=== PATIENT | male | born 1950 | race Caucasian/White ===

== ENCOUNTER 2017-07-23 15:08 | Emergency (ER) | payer BC, OTHER ==
--- NOTE | 2017-07-23 16:01 | EDM.PDOC ---
ED HPI GENERAL MEDICAL PROBLEM - General Chief Complaint: Neuro Symptoms/Deficits Stated Complaint: TINGLING/SENSATIONS IN FACE Time Seen by Provider: 07/23/17 16:00 Source of Information: Reports: Patient, Family History Limitations: Reports: No Limitations - History of Present Illness INITIAL COMMENTS - FREE TEXT/NARRATIVE: pt has had about 4 hours of marked facial numbness and twitching of the muscles when he smiles. This occurs on both sides. He has no facial deviation.he has no other symptoms. Onset: Today, Sudden, Other ( lasted for 4 hours. It is now improving. ) Duration: Hour(s): Location: Reports: Face Associated Symptoms: Reports: Other (pt had muscle twitching on the face. ) - Related Data Allergies Allergy/AdvReac Type Severity Reaction Status Date / Time codeine Allergy Nausea and Verified 07/23/17 15:22 Vomiting Penicillins Allergy Hives Verified 07/23/17 15:22 Home Meds: Home Meds Hydrochlorothiazide [Hydrochlorothiazide] 25 mg PO DAILY 07/23/17 [History] Lisinopril [Lisinopril] 20 mg PO DAILY 07/23/17 [History] Zolpidem Tartrate [Zolpidem Tartrate] 10 mg PO DAILY 07/23/17 [History] amLODIPine Besylate [Amlodipine Besylate] 5 mg PO DAILY 07/23/17 [History] atorvaSTATin [Lipitor] 80 mg PO ONETIME 07/23/17 [History] Past Medical History Cardiovascular History: Reports: Heart Murmur, High Cholesterol, Hypertension Gastrointestinal History: Reports: GERD Neurological History: Reports: Cerebral Aneurysms, CVA - Past Surgical History Cardiovascular Surgical History: Reports: Carotid Endarterectomy GI Surgical History: Reports: Joseph Fundoplication Other Endocrine Surgeries/Procedures: nodual removed from thyroid Social & Family History - Tobacco Use Smoking Status *Q: Former Smoker Used Tobacco, but Quit: Yes Month Tobacco Last Used: 35 years ago - Caffeine Use Caffeine Use: Reports: Coffee - Recreational Drug Use Recreational Drug Use: No ED ROS GENERAL - Review of Systems Review Of Systems: See Below Constitutional: Reports: No Symptoms HEENT: Reports: Other ( muscle twitching on the cheek area bilaterally. ) Respiratory: Reports: No Symptoms Cardiovascular: Reports: No Symptoms Endocrine: Reports: No Symptoms GI/Abdominal: Reports: No Symptoms : Reports: No Symptoms Musculoskeletal: Reports: No Symptoms Skin: Reports: No Symptoms Neurological: Reports: Tingling, Other ( pt has tingling on the face bilateral. ) ED EXAM, NEURO - Physical Exam Exam: See Below Text/Narrative:: pt arrived with facial tingling bilateral. He has muscle twitching of the facial muscles when he smiles. Exam Limited By: No Limitations General Appearance: Alert, Anxious, Other (pupils equal and are reactive, no nystagmus is noted. ) Ears: Normal TMs Nose: Normal Inspection Throat/Mouth: Normal Inspection Head Exam: Atraumatic Neck: Normal Inspection Respiratory/Chest: No Respiratory Distress Cardiovascular: Other ( grade 3 systolic murmur which is long standing. ) GI/Abdominal: Soft (Male) Exam: Deferred Rectal (Males) Exam: Deferred Neurological: Alert, Normal Gait, Normal Reflexes, Other (He has facial twitching. The twitching occured in the cheeks ) Back Exam: Normal Inspection Extremities: Normal Inspection Psychiatric: Normal Affect Course - Vital Signs Last Recorded V/S: Last Vital Signs Temp 36.4 C 07/23/17 18:36 Pulse 56 L 07/23/17 18:36 Resp 16 07/23/17 18:36 BP 187/121 H 07/23/17 18:36 Pulse Ox 94 L 07/23/17 18:36 - Orders/Labs/Meds Orders: Active Orders 24 hr Category Date Time Status EKG Documentation Completion [RC] ASDIRECTED Care 07/23/17 16:01 Active Carotid Comp [US] Stat Exams 07/23/17 16:00 Taken Head wo Cont [CT] Stat Exams 07/23/17 15:58 Taken EKG 12 Lead [EK] Routine Ther 07/23/17 16:01 Ordered Labs: Laboratory Tests 07/23/17 07/23/17 Range/Units 16:09 16:09 WBC 5.5 (4.5-11.0) K/uL RBC 4.77 (4.30-5.90) M/uL Hgb 14.4 (12.0-15.0) g/dL Hct 41.2 (40.0-54.0) % MCV 86 (80-98) fL MCH 30 (27-31) pg MCHC 35 (32-36) % Plt Count 217 (150-400) K/uL Neut % (Auto) 67 H (36-66) % Lymph % (Auto) 24 (24-44) % Falls % (Auto) 8 H (2-6) % Eos % (Auto) 0 L (2-4) % Baso % (Auto) 1 (0-1) % Sodium 140 (140-148) mmol/L Potassium 3.7 (3.6-5.2) mmol/L Chloride 104 (100-108) mmol/L Carbon Dioxide 28 (21-32) mmol/L Anion Gap 8.2 (5.0-14.0) mmol/L BUN 13 (7-18) mg/dL Creatinine 1.0 (0.8-1.3) mg/dL Est Cr Clr Drug Dosing 76.21 mL/min Estimated GFR (MDRD) > 60 (>60) Glucose 97 (74-106) mg/dL Calcium 8.4 L (8.5-10.1) mg/dL Total Bilirubin 0.5 (0.2-1.0) mg/dL AST 25 (15-37) U/L ALT 30 (12-78) U/L Alkaline Phosphatase 61 (46-116) U/L Total Protein 7.3 (6.4-8.2) g/dL Albumin 3.8 (3.4-5.0) g/dL Globulin 3.5 (2.3-3.5) g/dL Albumin/Globulin Ratio 1.1 L (1.2-2.2) Meds: Medications Discontinued Medications Generic Name Dose Route Start Last Admin Trade Name Freq PRN Reason Stop Dose Admin Aspirin 325 mg 07/23/17 17:49 07/23/17 18:01 Ecotrin PO 07/23/17 17:50 325 mg ONETIME ONE Administration - Re-Assessments/Exams Free Text/Narrative Re-Assessment/Exam: 07/23/17 18:31 cat scan of the head was neg for acute findings, carotid us was neg. . for acute stenosis. His lab work was neg. He remained stable except his bp was elevated. He did take the usual meds that he would take in the pm. 07/23/17 18:32 07/24/17 07:28 Departure - Departure Time of Disposition: 18:33 Disposition: DC/Tfer to Acute Hospital 02 Condition: Fair Clinical Impression: Numbness of face - Discharge Information Referrals: PCP,None [Primary Care Provider] - Forms: ED Department Discharge Care Plan Goals: transfer to [facility] for further work up. He will have a MRI and if all is neg he may be able to go home. - My Orders Last 24 Hours: My Active Orders 07/23/17 15:58 Head wo Cont [CT] Stat 07/23/17 16:00 Carotid Comp [US] Stat 07/23/17 16:01 EKG Documentation Completion [RC] ASDIRECTED EKG 12 Lead [EK] Routine - Assessment/Plan Last 24 Hours: My Active Orders 07/23/17 15:58 Head wo Cont [CT] Stat 07/23/17 16:00 Carotid Comp [US] Stat 07/23/17 16:01 EKG Documentation Completion [RC] ASDIRECTED EKG 12 Lead [EK] Routine
[2017-07-23] MEDS ORDERED: Aspirin 325 MG Tab.EC PO ONE (17:49)
[2017-07-23 18:37] VITALS: BP 187/121
--- NOTE | 2017-07-24 09:59 | US ---
Carotid ultrasound. Findings: Left, common carotid artery is patent. There is mild-moderate plaque left bulb and left ICA. Peak sy stolic velocity left ICA 55 cm/s. Left vertebral artery is antegrade and patent. Right common carotid artery is patent. Mild plaque right ICA. Peak systolic velocity right ICA 56 cm per second. Right ve rtebral artery is antegrade and patent. There is some dampening of the waveform within the right subc lavian artery. No definitive elevated velocity. Impression: 1. No hemodynamically significant stenosis within the internal carotid arteries.
== END 2017-07-23 19:01 ==
LOC: JP.ED 15:08
DX: R20.0 Anesthesia of skin (principal); I10 Essential (primary) hypertension; E78.00 Pure hypercholesterolemia, unspecified; K21.9 Gastro-esophageal reflux disease without esophagitis; Z98.890 Other specified postprocedural states; Z87.891 Personal history of nicotine dependence; Z79.899 Other long term (current) drug therapy; Z88.0 Allergy status to penicillin; Z88.5 Allergy status to narcotic agent
CPT/HCPCS: 36415; 70450; 80053; 85025; 93005; 93880; 99285; A9270

== ENCOUNTER → 2017-11-12 | Day surgery (SDC) | payer OTHER, MEDICARE ==
[~2017-11-12] MED LIST: Bacitracin Oint 1 GM U/D Packet ONE; Bupivacaine 0.5% 30 ML SDV ONE; Bupivacaine 0.5% 50 ML MDV ONE; Lidocaine 1% 50 ML MDV ONE; Lidocaine 1% with EPINEPHrine 1:100,000 50 ML MDV ONE; Midazolam 1 MG/ML 2 ML SDV ONE; Propofol 200 MG/20 ML SDV ONE; Sodium Chloride 0.9% 1,000 ML IV SCH; ceFAZolin 2 GM in Premix Bag 1 BAG IV ONE; fentaNYL 100 MCG/2 ML SDV ONE
--- NOTE | 2017-12-06 09:24 | OR ---
DATE OF PROCEDURE: 11/12/2017 PROCEDURE: Excision of foreign body, left leg and left ring finger. COMPLICATIONS: None. MELT SUPERINTENDANT: None. ANESTHESIA: MAC/local. PREOPERATIVE DIAGNOSIS: Foreign bodies. POSTOPERATIVE DIAGNOSIS: Foreign bodies. INDICATIONS: This is a 67-year-old male with multiple foreign bodies as described above, requiring excision. Risks, benefits, alternatives, limitations including, but not limited to infection, bleeding, injury to blood vessels, nerves, and other risks, along with chronic wound formation, were explained to the patient, who wished to proceed. PROCEDURE IN DETAIL: The patient was placed in supine position. Attention was turned to the left leg first. This was anesthetized with 1% lidocaine. A single lorna was created in this, and this was excised with minimal dissection. This was noted to be a large piece of metal, consistent with a nail. The incision was closed with 3-0 Vicryl and 3-0 Prolene in interrupted and running fashion. Foam dressings were applied, along with Juan Pablo and Kerlix. Attention was then turned to the left ring finger. This was on the medial aspect. A single lorna was created in the skin approximately 5 mm in size. This would be enlarged multiple times. Over the next approximately 20 minutes, gentle dissection was done to be able to be correctly verified. Of note, careful attention was made to stay away from ligaments, tendons, nerves, and vessels. Because this was felt by the patient preoperatively to be superficial, an elliptical incision was made, and the skin was then excised. This was then closed with 3-0 Vicryl and 3-0 Prolene in an interrupted and running fashion. Dressings were applied. The patient tolerated the procedure well. Luis Caballero MD /[id number]
== END ==
LOC: JP.SDS 06:38
PROVIDERS: ATTEND Surgery
DX: S60.455A Superficial foreign body of left ring finger, initial encounter (principal); I10 Essential (primary) hypertension; G45.9 Transient cerebral ischemic attack, unspecified; W45.8XXA Other foreign body or object entering through skin, initial encounter; Z88.0 Allergy status to penicillin; Z88.8 Allergy status to other drugs, medicaments and biological substances
CPT/HCPCS: 10120; 12031; 36415; 80048; 85027; J2250; J2704; J3010

== ENCOUNTER 2019-04-02 19:49 | Emergency (ER) | payer MEDICARE, OTHER ==
[2019-04-02] MEDS ORDERED: Aspirin 81 MG Tab.Chew PO ONE (19:59)
[2019-04-02] MEDS ORDERED: Nitroglycerin/D5W 25 MG/250 ML BOTTLE IV SCH (20:00)
[2019-04-02] MEDS ORDERED: Sodium Chloride 0.9% 1,000 ML IV SCH (20:15)
[2019-04-02] MEDS ORDERED: Clopidogrel 75 MG Tab PO ONE (20:18)
[2019-04-02] MEDS ORDERED: Clopidogrel 75 MG Tab ONE (20:21)
[2019-04-02 20:30] VITALS: BP 153/102
--- NOTE | 2019-04-02 20:30 | EDM.PDOC ---
ED HPI GENERAL MEDICAL PROBLEM - General Chief Complaint: Chest Pain Stated Complaint: HEART TROUBLE Time Seen by Provider: 04/02/19 19:50 Source of Information: Reports: Patient History Limitations: Reports: No Limitations - History of Present Illness INITIAL COMMENTS - FREE TEXT/NARRATIVE: 69-year-old male with a history of carotid atherosclerosis who is followed yearly by cardiology but no specific coronary artery disease he knows of. He has been having chest pressure and pain with activity for the past week, and tonight after eating he had persistent pain that was not resolving with diaphoresis and mild shortness of breath. No nausea or vomiting. No recent trauma. He also developed a spontaneous swelling on the dorsal aspect of his right hand tonight without trauma. Onset: Unknown/Unsure (Symptoms of been waxing and weaning for 1-2 weeks) Worsens with: Reports: Other (Definitely worse with activity, improves with rest ) Treatments KENNEL SUPERVISOR: Reports: Other (see below) Other Treatments KENNEL SUPERVISOR: none Chest Middle Pain Score (Numeric/FACES): 4 - Related Data Allergies Allergy/AdvReac Type Severity Reaction Status Date / Time codeine Allergy Nausea and Verified 04/02/19 19:59 Vomiting Penicillins Allergy Hives Verified 04/02/19 19:59 Home Meds: Home Meds Lisinopril 20 mg PO DAILY 07/23/17 [History] amLODIPine Besylate [Amlodipine Besylate] 5 mg PO DAILY 07/23/17 [History] atorvaSTATin [Lipitor] 40 mg PO ONETIME 07/23/17 [History] hydroCHLOROthiazide [Hydrochlorothiazide] 25 mg PO DAILY 07/23/17 [History] Acetaminophen/HYDROcodone [[place] 325-5 MG] 1 tab PO Q4H PRN 11/11/17 [History] Atenolol 50 mg PO DAILY 11/11/17 [History] Metoprolol Tartrate 25 mg PO DAILY 04/02/19 [History] Past Medical History Cardiovascular History: Reports: Heart Murmur, High Cholesterol, Hypertension Gastrointestinal History: Reports: GERD Neurological History: Reports: Cerebral Aneurysms, CVA Other Neuro History: Basilar Artery Tip Aneurysms - Infectious Disease History Infectious Disease History: Reports: Chicken Pox - Past Surgical History Cardiovascular Surgical History: Reports: Carotid Endarterectomy GI Surgical History: Reports: Joseph Fundoplication Endocrine Surgical History: Reports: Other (See Below) Other Endocrine Surgeries/Procedures: nodual removed from thyroid Social & Family History - Family History Family Medical History: Unobtainable - Tobacco Use Smoking Status *Q: Never Smoker Second Hand Smoke Exposure: No - Caffeine Use Caffeine Use: Reports: Coffee - Recreational Drug Use Recreational Drug Use: No ED ROS GENERAL - Review of Systems Review Of Systems: See Below Constitutional: Denies: Fever, Chills, Decreased Appetite HEENT: Reports: No Symptoms Respiratory: Reports: Shortness of Breath Cardiovascular: Reports: Chest Pain. Denies: Lightheadedness, Palpitations GI/Abdominal: Denies: Abdominal Pain, Nausea, Vomiting Skin: Reports: Diaphoresis, Bruising (Bruising and swelling on the dorsal aspect of the right hand) Neurological: Denies: Headache Psychiatric: Reports: No Symptoms ED EXAM, GENERAL - Physical Exam Exam: See Below Exam Limited By: No Limitations General Appearance: Alert, No Apparent Distress, Anxious Eye Exam: Bilateral Eye: Normal Inspection Neck: Supple Respiratory/Chest: No Respiratory Distress, Lungs Clear Cardiovascular: Regular Rate, Rhythm, Systolic Murmur (2/6 systolic ejection murmur) GI/Abdominal: Soft, Non-Tender Extremities: No Pedal Edema, Other (Patient has a fairly significant subcutaneous hematoma which has developed on the dorsal right hand, it is tender to palpation) Neurological: Alert, Oriented Skin Exam: Other (Bruising developing over the hematoma on the right hand) EKG INTERPRETATION Rhythm: NSR ST-T: Depressed (Diffuse ST depression especially anterior leads) Course - Vital Signs Last Recorded V/S: Last Vital Signs Temp 96.2 F 04/02/19 19:53 Pulse 97 04/02/19 20:29 Resp 14 04/02/19 20:29 BP 153/102 H 04/02/19 20:29 Pulse Ox 96 04/02/19 20:29 - Orders/Labs/Meds Orders: Active Orders 24 hr Category Date Time Status EKG Documentation Completion [RC] ASDIRECTED Care 04/02/19 19:59 Active EKG 12 Lead [EK] Routine Ther 04/02/19 19:58 Ordered Labs: Laboratory Tests 04/02/19 04/02/19 Range/Units 19:58 19:58 WBC 6.8 (4.5-11.0) K/uL RBC 4.60 (4.30-5.90) M/uL Hgb 14.2 (12.0-15.0) g/dL Hct 41.3 (40.0-54.0) % MCV 90 (80-98) fL MCH 31 (27-31) pg MCHC 34 (32-36) % Plt Count 237 (150-400) K/uL Neut % (Auto) 73 H (36-66) % Lymph % (Auto) 21 L (24-44) % Granite % (Auto) 6 (2-6) % Eos % (Auto) 0 L (2-4) % Baso % (Auto) 0 (0-1) % Sodium 142 (140-148) mmol/L Potassium 3.4 L (3.6-5.2) mmol/L Chloride 104 (100-108) mmol/L Carbon Dioxide 26 (21-32) mmol/L Anion Gap 15.4 H (5.0-14.0) mmol/L BUN 19 H (7-18) mg/dL Creatinine 1.1 (0.8-1.3) mg/dL Est Cr Clr Drug Dosing 66.36 mL/min Estimated GFR (MDRD) > 60 (>60) Glucose 159 H (74-106) mg/dL Calcium 9.0 (8.5-10.1) mg/dL Total Bilirubin 0.5 (0.2-1.0) mg/dL AST 18 (15-37) U/L ALT 25 (12-78) U/L Alkaline Phosphatase 60 (46-116) U/L Troponin I 0.034 (0.000-0.056) ng/mL Total Protein 7.2 (6.4-8.2) g/dL Albumin 3.7 (3.4-5.0) g/dL Globulin 3.5 (2.3-3.5) g/dL Albumin/Globulin Ratio 1.1 L (1.2-2.2) Meds: Medications Discontinued Medications Generic Name Dose Route Start Last Admin Trade Name Gatitoq PRN Reason Stop Dose Admin Aspirin 324 mg 04/02/19 19:59 04/02/19 20:01 Aspirin PO 04/02/19 20:00 324 mg ONETIME ONE Administration Clopidogrel Bisulfate 600 mg 04/02/19 20:18 04/02/19 20:22 Plavix PO 04/02/19 20:19 600 mg ONETIME ONE Administration Clopidogrel Bisulfate Confirm 04/02/19 20:21 04/02/19 20:25 Plavix Administered 04/02/19 20:22 Not Given Dose 600 mg .ROUTE .STK-MED ONE Nitroglycerin/Dextrose 25 mg in 250 mls @ 6 mls/hr 04/02/19 20:00 04/02/19 20 :03 Nitroglycerin 25 Mg/D5w 250 Ml IV 10 mcg/min TITRATE YU 6 mls/hr Administration Protocol 10 MCG/MIN Sodium Chloride 1,000 mls @ 50 mls/hr 04/02/19 20:15 04/02/19 20:07 Normal Saline IV 50 mls/hr ASDIRECTED [facility] Administration - Re-Assessments/Exams Free Text/Narrative Re-Assessment/Exam: 04/02/19 20:29 Urgent EKG was done which showed acute widespread evidence of ischemia but no ST elevation. Patient was given 364 mg of chewable aspirin, iron IV started and a nitroglycerin drip started at 10 mics per minute as his blood pressure initially was 190/100. Within several minutes of the nitroglycerin starting, his pain resolved and blood pressure improved. After cardiology consultation in [place] with Dr. Orourke, the patient was urgently transferred for intervention after given 600 mg of by mouth Plavix. He remained stable at transfer. 04/02/19 22:18 The hand hematoma was dressed with Dayana bandages. Troponin was 0.034, CBC normal. Patient had almost no pain on discharge. Departure - Departure Time of Disposition: 20:35 Disposition: DC/Tfer to Other Reason for Transfer *Q: Other Clinical Impression: Acute coronary syndrome Paroxysmal hematoma of right hand Qualifiers: Encounter type: initial encounter Qualified Code(s): S60.221A - Contusion of right hand, initial encounter Referrals: PCP,None [Primary Care Provider] - Forms: ED Department Discharge Care Plan Goals: Patient was urgently transferred to [place] for a cardiology evaluation and treatment for acute coronary syndrome. - My Orders Last 24 Hours: My Active Orders 04/02/19 19:58 EKG 12 Lead [EK] Routine 04/02/19 19:59 EKG Documentation Completion [RC] ASDIRECTED - Assessment/Plan Last 24 Hours: My Active Orders 04/02/19 19:58 EKG 12 Lead [EK] Routine 04/02/19 19:59 EKG Documentation Completion [RC] ASDIRECTED
== END 2019-04-02 20:35 | disposition other institution (70) ==
LOC: JP.ED 19:49
DX: I24.9 Acute ischemic heart disease, unspecified (principal); M79.81 Nontraumatic hematoma of soft tissue; I10 Essential (primary) hypertension; E78.00 Pure hypercholesterolemia, unspecified; K21.9 Gastro-esophageal reflux disease without esophagitis; Z79.899 Other long term (current) drug therapy; Z88.5 Allergy status to narcotic agent; Z88.0 Allergy status to penicillin
CPT/HCPCS: 36415; 80053; 84484; 85025; 93005; 96365; 99285; A9270; J3490; J7030

== ENCOUNTER 2019-07-10 07:20 | Day surgery (SDC) | payer OTHER ==
[~2019-07-10 07:20] MED LIST changes: -Bacitracin Oint 1 GM U/D Packet ONE; -Bupivacaine 0.5% 30 ML SDV ONE; -Lidocaine 1% 50 ML MDV ONE; -Midazolam 1 MG/ML 2 ML SDV ONE; -Propofol 200 MG/20 ML SDV ONE; -Sodium Chloride 0.9% 1,000 ML IV SCH; -ceFAZolin 2 GM in Premix Bag 1 BAG IV ONE; -fentaNYL 100 MCG/2 ML SDV ONE
[2019-07-10] MEDS ORDERED: Sodium Chloride 0.9% 1,000 ML IV SCH (07:45)
[2019-07-10] MEDS ORDERED: ceFAZolin 2 GM in Premix Bag 1 BAG IV ONE (08:00)
[2019-07-10] MEDS ORDERED: Propofol 200 MG/20 ML SDV ONE (08:14)
[2019-07-10] MEDS ORDERED: Midazolam 1 MG/ML 2 ML SDV ONE (08:15)
[2019-07-10] MEDS ORDERED: fentaNYL 100 MCG/2 ML SDV ONE (08:15)
--- NOTE | 2019-07-10 09:34 | CRLCR ---
INDICATION: Status post removal of a pacemaker wire from the chest wall; looking for any remnants . Technique: 3 view study chest. FINDINGS: Status post median sternotomy and prosthetic valve placement. No pacemaker leads or other foreign bodies identified in the chest wall. IMPRESSION: No radiopaque foreign bodies. Dictated by Efe Childs MD @ Jul 10 2019 9:29AM Signed by Dr. Efe Childs @ Jul 10 2019 9:32AM
[2019-07-10 10:09] VITALS: BP 140/78; PULSE 67
--- NOTE | 2019-07-10 13:26 | OR ---
DATE OF PROCEDURE: 07/10/2019 SURGEON: Luis Caballero MD PROCEDURES: 1. Excision of left neck lesion consistent with probable hemangioma. 2. Excision of left chest lesion at previous probable Doug-Lal drain location, left chest. 3. Removal of foreign body, left chest. COMPLICATIONS: None. SKIDDER RUNNER: None. ANESTHESIA: MAC/local. INDICATIONS: A pleasant 69-year-old male who had previous hemangiomas removed at another facility. The patient informed me that this required surgical excision in the operating room due to the extensive nature of this hemangioma, and this has been performed twice in the operating room previously. In addition, he has a left chest lesion, which is subcutaneous and mobile. RISKS: Risks, benefits, alternatives, and limitations including, but not limited to infection, bleeding, requirement for reoperation, and other risks not listed here. The patient understands these risks and wishes to proceed. PROCEDURE IN DETAIL: The patient was placed in the supine position. Left chest lesion was addressed first. This was anesthetized with 1% lidocaine. An elliptical incision was made and carried down with electrocautery. During this process, a blue wire was noted. The wire was removed without difficulty. No change in cardiac activity was noted during this. The wound was then closed with 3-0 Vicryl and 4-0 Prolene in interrupted running fashion. The left neck lesion was addressed next. This was excised in the same manner, same fashion, same technique, and in the same sequence, elliptical incision anesthetized with lidocaine. Dissection down with electrocautery. Irrigation and closure with 3-0 Vicryl and 4-0 Prolene in interrupted running fashion. Dressings were applied. The patient tolerated the procedure well. Luis Caballero MD /[id number]
--- NOTE | 2019-07-17 07:54 | OR ---
DATE OF PROCEDURE: 07/10/2019 ADDENDUM: Left neck lesion excision was 2.1 x 3.1 cm, and left chest lesion was 1.1 x 1.2 cm, both were full thickness, approximately 1 cm in depth. Luis Caballero MD /[id number]
== END 2019-07-10 10:34 | disposition home or self-care (01) ==
LOC: JP.SDS 07:20
PROVIDERS: ATTEND Surgery
DX: D18.01 Hemangioma of skin and subcutaneous tissue (principal); L02.213 Cutaneous abscess of chest wall; S20.352A Superficial foreign body of left front wall of thorax, initial encounter; I10 Essential (primary) hypertension; Z88.0 Allergy status to penicillin; Z86.73 Personal history of transient ischemic attack (TIA), and cerebral infarction without residual deficits; Z86.79 Personal history of other diseases of the circulatory system; Z95.1 Presence of aortocoronary bypass graft; Z88.5 Allergy status to narcotic agent
CPT/HCPCS: 11402; 11426; 71046; 88300; 88305; J0690; J2250; J2704; J3010; J3490; J7030

== ENCOUNTER 2020-05-02 16:27 | Emergency (ER) | payer OTHER ==
[2020-05-02 17:04] VITALS: PULSE 57
[2020-05-02 17:52] VITALS: BP 143/85
--- NOTE | 2020-05-02 18:25 | EDM.PDOC ---
ED HPI GENERAL MEDICAL PROBLEM - General Chief Complaint: General Stated Complaint: FEVER,SOB Time Seen by Provider: 05/02/20 17:15 Source of Information: Reports: Patient History Limitations: Reports: No Limitations - History of Present Illness INITIAL COMMENTS - FREE TEXT/NARRATIVE: 70-year-old male who had a very busy weekend, horseback riding through the [employer] and a long trip home yesterday was at his computer this morning and fell asleep for an hour and a half which is very unlike him. He had a similar episode happened to him a year ago and he ended up having a "heart attack". He also feels somewhat short of breath and had some brief chest burning this morning. He just wants to reassure himself that everything is okay, last year he had a double bypass. Onset: Sudden Duration: Hour(s): (10 hours ago) Location: Reports: Chest (Mild brief chest burning and shortness of breath) Associated Symptoms: Reports: Chest Pain, Shortness of Breath, Other ( Significant fatigue). Denies: Nausea/Vomiting, Weakness - Related Data Allergies Allergy/AdvReac Type Severity Reaction Status Date / Time codeine Allergy Nausea and Verified 05/02/20 17:04 Vomiting Penicillins Allergy Hives Verified 05/02/20 17:04 Home Meds: Home Meds Lisinopril 20 mg PO DAILY 07/23/17 [History] amLODIPine Besylate [Amlodipine Besylate] 5 mg PO DAILY 07/23/17 [History] atorvaSTATin [Lipitor] 40 mg PO BEDTIME 07/23/17 [History] Metoprolol Tartrate 25 mg PO BID 04/02/19 [History] Acetaminophen [Pain & Fever] 500 - 1,000 mg PO BID 07/10/19 [History] Cyclobenzaprine [Flexeril] 10 mg PO TID PRN 07/10/19 [History] Zolpidem [Ambien] 10 mg PO BEDTIME PRN 07/10/19 [History] Furosemide 20 mg PO DAILY 05/02/20 [History] hydroCHLOROthiazide [Hydrochlorothiazide] 25 mg PO DAILY 05/02/20 [History] Past Medical History HEENT History: Reports: None Cardiovascular History: Reports: Bypass, Heart Murmur, High Cholesterol, Hypertension Gastrointestinal History: Reports: GERD Neurological History: Reports: Cerebral Aneurysms, TIA Other Neuro History: Basilar Artery Tip Aneurysms Endocrine/Metabolic History: Reports: None - Infectious Disease History Infectious Disease History: Reports: Measles - Past Surgical History HEENT Surgical History: Reports: Detached Retina, Tonsillectomy Cardiovascular Surgical History: Reports: Carotid Endarterectomy GI Surgical History: Reports: Joseph Fundoplication Endocrine Surgical History: Reports: Other (See Below) Other Endocrine Surgeries/Procedures: nodual removed from thyroid Neurological Surgical History: Reports: None Social & Family History - Family History Family Medical History: Noncontributory - Caffeine Use Caffeine Use: Reports: Coffee - Recreational Drug Use Recreational Drug Use: No ED ROS GENERAL - Review of Systems Review Of Systems: See Below Constitutional: Reports: Malaise. Denies: Fever, Chills HEENT: Reports: No Symptoms Respiratory: Reports: Shortness of Breath. Denies: Cough Cardiovascular: Reports: Chest Pain, Dyspnea on Exertion. Denies: Palpitations GI/Abdominal: Reports: No Symptoms : Reports: No Symptoms Skin: Reports: No Symptoms Neurological: Reports: Weakness, Other (Fatigue) Psychiatric: Reports: No Symptoms ED EXAM, GENERAL - Physical Exam Exam: See Below Exam Limited By: No Limitations General Appearance: Alert, No Apparent Distress Eye Exam: Bilateral Eye: Normal Inspection Head: Atraumatic Neck: Supple, Non-Tender Respiratory/Chest: No Respiratory Distress, Lungs Clear Cardiovascular: Regular Rate, Rhythm, Systolic Murmur. No: Extra Beats GI/Abdominal: Soft, Non-Tender Extremities: Other (Just a trace of symmetric lower extremity edema) Neurological: Alert, Oriented Psychiatric: Normal Affect, Normal Mood Skin Exam: Warm, Dry Course - Vital Signs Last Recorded V/S: Last Vital Signs Temp 97.8 F 05/02/20 17:03 Pulse 57 L 05/02/20 17:51 Resp 15 05/02/20 17:51 BP 143/85 H 05/02/20 17:51 Pulse Ox 96 05/02/20 17:51 - Orders/Labs/Meds Labs: Laboratory Tests 05/02/20 05/02/20 Range/Units 17:48 17:48 WBC 5.4 (4.5-11.0) K/uL RBC 4.51 (4.30-5.90) M/uL Hgb 13.7 (12.0-15.0) g/dL Hct 40.7 (40.0-54.0) % MCV 90 (80-98) fL MCH 30 (27-31) pg MCHC 34 (32-36) % Plt Count 221 (150-400) K/uL Neut % (Auto) 70 H (36-66) % Lymph % (Auto) 21 L (24-44) % Hand % (Auto) 7 H (2-6) % Eos % (Auto) 0 L (2-4) % Baso % (Auto) 0 (0-1) % Sodium 139 L (140-148) mmol/L Potassium 4.1 (3.6-5.2) mmol/L Chloride 104 (100-108) mmol/L Carbon Dioxide 25 (21-32) mmol/L Anion Gap 14.1 H (5.0-14.0) mmol/L BUN 18 (7-18) mg/dL Creatinine 1.0 (0.8-1.3) mg/dL Est Cr Clr Drug Dosing 71.99 mL/min Estimated GFR (MDRD) > 60 (>60) Glucose 105 (74-106) mg/dL Calcium 8.6 (8.5-10.1) mg/dL Troponin I < 0.017 (0.000-0.056) ng/mL - Re-Assessments/Exams Free Text/Narrative Re-Assessment/Exam: 05/02/20 18:47 Monitor shows normal sinus rhythm, labs are completely normal including a negative troponin, normal electrolytes and CBC. Patient was reassured and will return if symptoms recur. Departure - Departure Time of Disposition: 18:33 Disposition: Home, Self-Care 01 Clinical Impression: Atypical chest pain Fatigue Qualifiers: Fatigue type: unspecified Qualified Code(s): R53.83 - Other fatigue Dyspnea Qualifiers: Dyspnea type: shortness of breath Qualified Code(s): R06.02 - Shortness of breath - Discharge Information Instructions: Shortness of Breath, Adult, [id number], Weakness, [id number] Referrals: PCP,None [Primary Care Provider] - Forms: ED Department Discharge Care Plan Goals: Start your prescriptions as prescribed by your test design engineer. Increase activity as tolerated and return anytime if worsening or concerns. Sepsis Event Note - Evaluation Sepsis Screening Result: No Definite Risk - Focused Exam Vital Signs: Vital Signs Temp Pulse Resp BP Pulse Ox 05/02/20 17:51 57 L 15 143/85 H 96 06/08/20 17:03 97.8 F 57 L 16 136/83 97 Date Exam was Performed: 05/02/20 Time Exam was Performed: 18:45
== END 2020-05-02 18:33 | disposition home or self-care (01) ==
LOC: JP.ED 16:27
DX: R07.89 Other chest pain (principal); R53.83 Other fatigue; R06.02 Shortness of breath; E78.00 Pure hypercholesterolemia, unspecified; I10 Essential (primary) hypertension; Z86.73 Personal history of transient ischemic attack (TIA), and cerebral infarction without residual deficits; Z79.899 Other long term (current) drug therapy; Z88.5 Allergy status to narcotic agent; Z88.0 Allergy status to penicillin
CPT/HCPCS: 36415; 80048; 84484; 85025; 99284

== ENCOUNTER 2023-01-04 03:37 | Emergency (ER) | payer MEDICARE ==
[2023-01-04 03:55] VITALS: BP 222/136; PULSE 80
[2023-01-04] MEDS ORDERED: Sodium Chloride 0.9% 10 ML Syringe FLUSH PRN (04:00)
[2023-01-04] MEDS ORDERED: Ketorolac 15 MG/ML SDV IVPUSH ONE (04:01)
[2023-01-04] MEDS ORDERED: HYDROmorphone 0.5 MG/0.5 ML Syringe IVPUSH ONE ×2 (04:03→05:48)
[2023-01-04] MEDS ORDERED: Iopamidol 612 MG/ML 100 ML Bottle IV STA (04:31)
[2023-01-04] MEDS ORDERED: Sodium Chloride 0.9% 50 ML IV STA (04:31)
[2023-01-04] MEDS ORDERED: Tamsulosin 0.4 MG Cap.ER PO ONE (04:59)
== END 2023-01-04 07:19 | disposition home or self-care (01) ==
LOC: JP.ED 03:37
DX: N13.2 Hydronephrosis with renal and ureteral calculous obstruction (principal); E78.00 Pure hypercholesterolemia, unspecified; I10 Essential (primary) hypertension; E78.5 Hyperlipidemia, unspecified; K21.9 Gastro-esophageal reflux disease without esophagitis; Z86.73 Personal history of transient ischemic attack (TIA), and cerebral infarction without residual deficits; Z88.5 Allergy status to narcotic agent; Z88.0 Allergy status to penicillin; Z79.899 Other long term (current) drug therapy
CPT/HCPCS: 36415; 74177; 80048; 81001; 83605; 85025; 86140; 96374; 96375; 96376; 99283; 99284; A9270; J1170; J1885; J3490; Q9967

== ENCOUNTER 2023-08-05 18:44 | Emergency (ER) | payer MEDICARE ==
[2023-08-05] MEDS ORDERED: hydrALAZINE 20 MG/ML SDV IVPUSH ONE (18:50)
[2023-08-05] MEDS ORDERED: Ondansetron 4 MG/2 ML SDV IVPUSH ONE (19:01)
[2023-08-05 19:03] LABS: BASOPHILS ABSOLUTE AUTO 0.02 K/uL (0.00-0.10); BASOPHILS PERCENT AUTO 0.2 % (0.1-1.3); EOSINOPHILS ABSOLUTE AUTO 0.03 K/uL (0.00-0.40); EOSINOPHILS PERCENT AUTO 0.3 % (0.0-5.4); HEMATOCRIT 36.3 % (38.4-49.7); HEMOGLOBIN 12.4 g/dL (12.9-16.9); IMMATURE GRAN ABSOLUTE AUTO 0.08 K/uL (0.00-0.23); IMMATURE GRAN PERCENT AUTO 0.8 % (0.0-0.7); LYMPHOCYTES ABSOLUTE AUTO 1.17 K/uL (0.8-3.3); LYMPHOCYTES PERCENT AUTO 12.4 % (11.4-47.7); MEAN CORPUSCULAR HGB CONC 34.2 g/dL (31.6-35.5); MEAN CORPUSCULAR VOLUME 87.9 fL (81.4-99.0); MONOCYTES ABSOLUTE AUTO 0.51 K/uL (0.20-0.90); MONOCYTES PERCENT AUTO 5.4 % (3.3-12.6); NEUTROPHILS ABSOLUTE AUTO 7.63 K/uL (1.0-7.6); NEUTROPHILS PERCENT AUTO 80.9 % (40.0-78.1); PLATELET COUNT,PLT 212 K/uL (130-375); RED BLOOD CELL COUNT 4.13 M/uL (4.14-5.76); WHITE BLOOD CELL COUNT,WBC 9.4 K/uL (3.2-11.0)
[2023-08-05 19:26] LABS: ANION GAP 10.7 mmol/L (5.0-14.0); CALCIUM 8.9 mg/dL (8.5-10.1); CREATININE 1.1 mg/dL (0.8-1.3); EST CRCL DRUG DOSING (CG) 62.68 mL/min; MAGNESIUM 1.8 mg/dL (1.8-2.4); POTASSIUM,K 3.6 mmol/L (3.6-5.2); TROPONIN I HIGH SENSITIVITY 15.7 pg/mL (<=60.3)
[2023-08-05 21:12] VITALS: BP 121/76; PULSE 84
== END 2023-08-05 22:21 | disposition home or self-care (01) ==
LOC: JP.ED 18:44
DX: R55 Syncope and collapse (principal); E78.00 Pure hypercholesterolemia, unspecified; I10 Essential (primary) hypertension; Z95.1 Presence of aortocoronary bypass graft; Z86.73 Personal history of transient ischemic attack (TIA), and cerebral infarction without residual deficits; Z88.0 Allergy status to penicillin; Z88.5 Allergy status to narcotic agent; Z79.899 Other long term (current) drug therapy
CPT/HCPCS: 36415; 80048; 83735; 84484; 85025; 93005; 96374; 96375; 99284; J0360; J2405; 93010; 99283